=== PATIENT | male | born 1960 | race Caucasian/White ===

== ENCOUNTER 2016-11-24 11:37 | Inpatient (IN) | payer SELFPAY ==
[2016-11-24] VITALS (456 sets, daily range): BP systolic 113–126; BP diastolic 78–102; PULSE 76–153; TEMP 97.6–98.2; O2SAT 94–100
[~2016-11-24] VITALS: Ht 172.7 cm; Wt 87.4 kg
[~2016-11-24 11:37] MED LIST: ADVIL200 MG PO; ASPIRIN 32325 MG/TAB PO; ASPIRIN 81M81 MG/TA2 PO; CYCLOBENZAPRINE10 MG PO; FLEXERIL 1010 MG/TAB PO; LIPITOR20 MG PO; LOPRESSOR 225 MG/TAB PO; LORTAB 5/500 501 TAB PO; MULTAQ400 MG PO; NITROSTAT0.4 MG/TAB SL; NO HOME MEDICATIONS; NORCO 325 MG-51 TAB PO; NORCO 325 MG-7.1 TAB PO; PLAVIX 75MG TAB75 MG PO; PRADAXA 150MG150 MG PO; PRAVACHOL 40MG40 MG PO; SKELAXIN800 MG PO; ZESTRIL 10MG10 MG PO
[2016-11-24] MEDS ORDERED: NORCO 325 MG-7.1 TAB PO (11:49)
[2016-11-24] MEDS ORDERED: NEURONTIN300 MG/CAP PO (11:50)
[2016-11-24 12:14] LABS: INR 1.1 (0.8-3.0); PROTHROMBIN TIME 11.8 SECONDS (9.7-12.8)
[2016-11-24 12:15] LABS: ADJUSTED CALCIUM 9.5 mg/dL (8.4-10.2); ALBUMIN 4.6 gm/dL (3.5-5.0); BILIRUBIN,TOTAL 0.9 mg/dL (0.0-1.0); CREATININE, serum 0.9 mg/dL (0.66-1.25); POTASSIUM 4.1 mmol/L (3.4-5.0); TOTAL PROTEIN 7.9 gm/dL (6.4-8.2)
[2016-11-24 12:17] LABS: PARTIAL THROMBOPLASTIN TIME 21.2 SECONDS (26.0-37.0)
[2016-11-24 12:20] LABS: BASO % 0.4 % (0.0-2.0); EOS # 0.1 (0.0-0.7); EOS % 0.9 % (0-4.0); GRAN # 7.1 (1.4-6.5); HEMOGLOBIN 14.5 g/dl (13.5-18.0); LYMPH # 1.8 (1.2-3.4); LYMPH % 17.9 % (20.0-51.0); MEAN CELL VOLUME 96 fl (80.0-100.0); MEAN CORPUSCULAR HEMOGLOBIN 32 pg (27.0-31.0); MEAN CORPUSCULAR HGB CONC 34 g/dl (33.0-37.0); MONO # 0.8 (0.1-0.6); MONO % 8.6 % (1.7-9.3); PLATELET COUNT 218 K/mm3 (130-400); RED BLOOD COUNT 4.47 M/mm3 (4.20-5.60); WHITE BLOOD COUNT 9.8 K/mm3 (4.8-10.8)
[2016-11-24 12:29] LABS: B-TYPE NATRIURETIC PEPTIDE 155 pg/mL (0-125); TROPONIN-I < 0.012 ng/mL (0.000-0.034)
[2016-11-25] VITALS (469 sets, daily range): BP systolic 105–138; BP diastolic 68–105; PULSE 57–73; TEMP 98.2–99.2; O2SAT 94–100
[2016-11-25 05:29] LABS: BASO % 0.5 % (0.0-2.0); EOS # 0.2 (0.0-0.7); GRAN # 5.1 (1.4-6.5); GRAN % 64.1 % (42.2-75.2); HEMATOCRIT 37.9 % (42.0-52.0); HEMOGLOBIN 12.6 g/dl (13.5-18.0); LYMPH # 1.8 (1.2-3.4); MEAN CELL VOLUME 98 fl (80.0-100.0); MEAN CORPUSCULAR HEMOGLOBIN 33 pg (27.0-31.0); MEAN CORPUSCULAR HGB CONC 33 g/dl (33.0-37.0); MEAN PLATELET VOLUME 11.8 fl (7.4-10.4); MONO # 0.8 (0.1-0.6); PLATELET COUNT 166 K/mm3 (130-400); RED BLOOD COUNT 3.86 M/mm3 (4.20-5.60); REDCELL DISTRIBUTION WIDTH-CV 13.2 % (11.5-14.5); WHITE BLOOD COUNT 7.9 K/mm3 (4.8-10.8)
[2016-11-25 05:54] LABS: CALCIUM 9.4 mg/dL (8.4-10.2); CREATININE, serum 0.85 mg/dL (0.66-1.25); POTASSIUM 3.9 mmol/L (3.4-5.0)
[2016-11-25] MEDS ORDERED: XARELTO20 MG PO (07:57)
[2016-11-25] MEDS ORDERED: CORDARONE200 MG/TAB PO (07:57)
[2016-11-25] MEDS ORDERED: ZOCOR 10MG10 MG PO (08:06)
== END 2016-11-25 12:13 | disposition home or self-care (01) | DRG 310 ==
LOC: COL.ER 11:37 → ICU 13:18
PROVIDERS: Emergency Medicine; Internal Medicine
DX: I48.92 Unspecified atrial flutter (principal); G62.9 Polyneuropathy, unspecified; E78.5 Hyperlipidemia, unspecified; I25.10 Atherosclerotic heart disease of native coronary artery without angina pectoris; I25.2 Old myocardial infarction; Z79.82 Long term (current) use of aspirin; Z95.5 Presence of coronary angioplasty implant and graft
CPT/HCPCS: 99223-AI; 99239; J0282; J1650; J7030; J7050; J7060

== ENCOUNTER 2017-10-11 09:17 | Emergency (ER) | payer SELFPAY ==
[~2017-10-11] VITALS: Ht 170.2 cm; Wt 90.9 kg
[~2017-10-11 09:17] MED LIST changes: +CORDARONE200 MG/TAB PO; +NEURONTIN300 MG/CAP PO; +XARELTO20 MG PO; +ZOCOR 10MG10 MG PO
[2017-10-11 09:23] VITALS: BP 132/78; TEMP 98.1
[2017-10-11] MEDS ORDERED: CEPHALEXIN500 M1 PO (10:31)
[2017-10-11 10:39] VITALS: PULSE 70
== END 2017-10-11 10:42 | disposition home or self-care (01) ==
LOC: COL.ER 09:17
DX: S62.630B Displaced fracture of distal phalanx of right index finger, initial encounter for open fracture (principal); Z79.82 Long term (current) use of aspirin; Z23 Encounter for immunization; Z88.0 Allergy status to penicillin; W23.0XXA Caught, crushed, jammed, or pinched between moving objects, initial encounter

== ENCOUNTER 2017-10-25 17:35 | Emergency (ER) | payer SELFPAY ==
[~2017-10-25] VITALS: Ht 170.2 cm; Wt 93.2 kg
[~2017-10-25 17:35] MED LIST changes: +CEPHALEXIN500 M1 PO
[2017-10-25 17:39] VITALS: TEMP 99.5
[2017-10-25 18:20] LABS: BASO % 0.3 % (0.0-2.0); EOS # 0.1 (0.0-0.7); EOS % 0.6 % (0-4.0); GRAN # 8.6 (1.4-6.5); HEMATOCRIT 41.6 % (42.0-52.0); HEMOGLOBIN 13.9 g/dl (13.5-18.0); LYMPH # 1.6 (1.2-3.4); LYMPH % 14.4 % (20.0-51.0); MEAN CELL VOLUME 96 fl (80.0-100.0); MEAN CORPUSCULAR HEMOGLOBIN 32 pg (27.0-31.0); MEAN CORPUSCULAR HGB CONC 33 g/dl (33.0-37.0); MEAN PLATELET VOLUME 10.9 fl (7.4-10.4); MONO # 0.8 (0.1-0.6); MONO % 7.3 % (1.7-9.3); PLATELET COUNT 228 K/mm3 (130-400); RED BLOOD COUNT 4.35 M/mm3 (4.20-5.60); REDCELL DISTRIBUTION WIDTH-CV 13.5 % (11.5-14.5)
[2017-10-25 18:30] LABS: ALBUMIN 4.3 gm/dL (3.5-5.0); BILIRUBIN,TOTAL 0.6 mg/dL (0.0-1.0); CALCIUM 9.6 mg/dL (8.4-10.2); CREATININE, serum 1.08 mg/dL (0.66-1.25); MAGNESIUM 2.3 mg/dL (1.6-2.3); TOTAL PROTEIN 7.7 gm/dL (6.4-8.2)
[2017-10-25] MEDS ORDERED: ULTRAM 50MG TAB50 MG PO (18:49)
[2017-10-25] MEDS ORDERED: LOPRESSOR 225 MG/TAB PO (20:55)
[2017-10-25 22:05] VITALS: BP 102/77; PULSE 78
== END 2017-10-25 22:07 | disposition home or self-care (01) ==
LOC: COL.ER 17:35
PROVIDERS: Emergency Medicine
DX: I48.91 Unspecified atrial fibrillation (principal); I48.92 Unspecified atrial flutter
CPT/HCPCS: J1650; J2704

== ENCOUNTER 2017-11-09 20:34 | Inpatient (IN) | payer SELFPAY ==
[2017-11-09] VITALS (62 sets, daily range): BP systolic 105; BP diastolic 86; PULSE 135; TEMP 98.1; O2SAT 93–99
[~2017-11-09] VITALS: Ht 170.2 cm; Wt 96.8 kg
[~2017-11-09 20:34] MED LIST changes: +ULTRAM 50MG TAB50 MG PO
[2017-11-09 20:54] LABS: BASO % 0.3 % (0.0-2.0); EOS # 0.1 (0.0-0.7); EOS % 1.1 % (0-4.0); GRAN # 8.6 (1.4-6.5); GRAN % 71.7 % (42.2-75.2); HEMATOCRIT 41.2 % (42.0-52.0); LYMPH # 2.4 (1.2-3.4); LYMPH % 20.1 % (20.0-51.0); MEAN CELL VOLUME 94 fl (80.0-100.0); MEAN CORPUSCULAR HEMOGLOBIN 32 pg (27.0-31.0); MEAN CORPUSCULAR HGB CONC 34 g/dl (33.0-37.0); MEAN PLATELET VOLUME 11.4 fl (7.4-10.4); MONO # 0.8 (0.1-0.6); MONO % 6.5 % (1.7-9.3); PLATELET COUNT 212 K/mm3 (130-400); RED BLOOD COUNT 4.37 M/mm3 (4.20-5.60); REDCELL DISTRIBUTION WIDTH-CV 13.4 % (11.5-14.5)
[2017-11-09 21:01] LABS: INR 0.9 (0.8-3.0); PROTHROMBIN TIME 10.1 SECONDS (9.7-12.8)
[2017-11-09 21:03] LABS: ALANINE AMINOTRANSFERASE 42 U/L (21-72); ALKALINE PHOSPHATASE 89 U/L (50-136); ANION GAP 11 mmol/L (7-16); AST,SGOT 31 U/L (15-37); BILIRUBIN,TOTAL 0.3 mg/dL (0.0-1.0); BLOOD UREA NITROGEN 15 mg/dL (9-20); CALCIUM 9.1 mg/dL (8.4-10.2); CARBON DIOXIDE 22 mmol/L (22-30); CHLORIDE 104 mmol/L (98-107); GLUCOSE 190 mg/dL (74-106); POTASSIUM 3.8 mmol/L (3.4-5.0); SODIUM 137 mmol/L (137-145); TOTAL PROTEIN 7.3 gm/dL (6.4-8.2)
[2017-11-09 21:04] LABS: PARTIAL THROMBOPLASTIN TIME 37.2 SECONDS (26.0-37.0)
[2017-11-09 21:16] LABS: TROPONIN-I < 0.012 ng/mL (0.000-0.034)
[2017-11-09] MEDS ORDERED: ADVIL200 MG PO (22:14)
[2017-11-10] VITALS (867 sets, daily range): BP systolic 101–127; BP diastolic 67–98; PULSE 66–132; TEMP 97.5–98; O2SAT 88–100
[2017-11-10 05:47] LABS: BASO % 0.3 % (0.0-2.0); EOS # 0.3 (0.0-0.7); EOS % 3.3 % (0-4.0); GRAN # 5.1 (1.4-6.5); HEMOGLOBIN 14.4 g/dl (13.5-18.0); LYMPH # 2.5 (1.2-3.4); LYMPH % 28.2 % (20.0-51.0); MEAN CELL VOLUME 96 fl (80.0-100.0); MEAN CORPUSCULAR HEMOGLOBIN 32 pg (27.0-31.0); MEAN CORPUSCULAR HGB CONC 34 g/dl (33.0-37.0); MEAN PLATELET VOLUME 11.3 fl (7.4-10.4); MONO # 0.9 (0.1-0.6); MONO % 9.7 % (1.7-9.3); PLATELET COUNT 185 K/mm3 (130-400); RED BLOOD COUNT 4.46 M/mm3 (4.20-5.60); REDCELL DISTRIBUTION WIDTH-CV 13.5 % (11.5-14.5)
[2017-11-10 06:00] LABS: CALCIUM 8.8 mg/dL (8.4-10.2); CHOLESTEROL RISK RATIO 9.4; CREATININE, serum 0.71 mg/dL (0.66-1.25); POTASSIUM 3.9 mmol/L (3.4-5.0)
[2017-11-11] VITALS (519 sets, daily range): BP systolic 111–140; BP diastolic 72–98; PULSE 53–108; TEMP 98.2–98.8; O2SAT 89–100
[2017-11-11 05:56] LABS: INR 1.2 (0.8-3.0); PROTHROMBIN TIME 13.4 SECONDS (9.7-12.8)
[2017-11-11 07:34] LABS: BASO % 0.3 % (0.0-2.0); EOS # 0.2 (0.0-0.7); EOS % 1.6 % (0-4.0); GRAN % 72.2 % (42.2-75.2); HEMATOCRIT 43.6 % (42.0-52.0); HEMOGLOBIN 14.8 g/dl (13.5-18.0); LYMPH # 1.7 (1.2-3.4); LYMPH % 17.2 % (20.0-51.0); MEAN CELL VOLUME 95 fl (80.0-100.0); MEAN CORPUSCULAR HEMOGLOBIN 32 pg (27.0-31.0); MEAN CORPUSCULAR HGB CONC 34 g/dl (33.0-37.0); MEAN PLATELET VOLUME 10.8 fl (7.4-10.4); MONO # 0.8 (0.1-0.6); MONO % 8.1 % (1.7-9.3); PLATELET COUNT 200 K/mm3 (130-400); RED BLOOD COUNT 4.59 M/mm3 (4.20-5.60); REDCELL DISTRIBUTION WIDTH-CV 13.4 % (11.5-14.5)
[2017-11-11 07:48] LABS: CALCIUM 9.1 mg/dL (8.4-10.2); CREATININE, serum 0.74 mg/dL (0.66-1.25); MAGNESIUM 2.1 mg/dL (1.6-2.3); PHOSPHOROUS 2.4 mg/dL (2.5-4.5); POTASSIUM 4.1 mmol/L (3.4-5.0)
[2017-11-12 04:41] VITALS: BP 137/95; PULSE 63; TEMP 98.4
[2017-11-12 07:51] VITALS: BP 147/87; PULSE 67; TEMP 98.3
[2017-11-12] MEDS ORDERED: LOPRESSOR 550 MG/TAB PO (07:53)
[2017-11-12] MEDS ORDERED: LIPITOR 40MG TA40 MG PO (07:54)
[2017-11-12] MEDS ORDERED: EPA FISH OIL1 SGL PO (07:54)
[2017-11-12] MEDS ORDERED: ASPIRIN 81M81 MG/TA2 PO (07:54)
[2017-11-12] MEDS ORDERED: VITAMIN D31000 I1 PO (08:02)
== END 2017-11-12 10:25 | disposition home or self-care (01) | DRG 310 ==
LOC: COL.ER 20:34 → ICU 21:28 → SURG 11-11 13:45
PROVIDERS: Emergency Medicine; Hospitalist; Internal Medicine; Nurse Practitioner
DX: I48.91 Unspecified atrial fibrillation (principal); I48.92 Unspecified atrial flutter; I25.10 Atherosclerotic heart disease of native coronary artery without angina pectoris; Z95.5 Presence of coronary angioplasty implant and graft; Z91.14 Patient's other noncompliance with medication regimen; E78.5 Hyperlipidemia, unspecified; E55.9 Vitamin D deficiency, unspecified; R73.9 Hyperglycemia, unspecified
CPT/HCPCS: 99222-AI; 99232-AI; 99239; J1650; J7030

== ENCOUNTER 2017-12-16 21:02 | Emergency (ER) | payer SELFPAY ==
[~2017-12-16] VITALS: Ht 170.2 cm; Wt 93.2 kg
[~2017-12-16 21:02] MED LIST changes: +EPA FISH OIL1 SGL PO; +LIPITOR 40MG TA40 MG PO; +LOPRESSOR 550 MG/TAB PO; +VITAMIN D31000 I1 PO
[2017-12-16 21:06] VITALS: TEMP 97.9
[2017-12-16 21:27] LABS: BASO # 0.1 (0.0-0.2); BASO % 0.4 % (0.0-2.0); EOS # 0.3 (0.0-0.7); EOS % 2.6 % (0-4.0); GRAN # 8.3 (1.4-6.5); GRAN % 65.4 % (42.2-75.2); HEMATOCRIT 43.6 % (42.0-52.0); HEMOGLOBIN 14.8 g/dl (13.5-18.0); LYMPH # 2.8 (1.2-3.4); LYMPH % 22.1 % (20.0-51.0); MEAN CELL VOLUME 95 fl (80.0-100.0); MEAN CORPUSCULAR HEMOGLOBIN 32 pg (27.0-31.0); MEAN CORPUSCULAR HGB CONC 34 g/dl (33.0-37.0); MEAN PLATELET VOLUME 11.6 fl (7.4-10.4); MONO # 1.2 (0.1-0.6); MONO % 9.1 % (1.7-9.3); PLATELET COUNT 207 K/mm3 (130-400); RED BLOOD COUNT 4.57 M/mm3 (4.20-5.60); REDCELL DISTRIBUTION WIDTH-CV 13.3 % (11.5-14.5)
[2017-12-16 21:33] LABS: PROTHROMBIN TIME 11.2 SECONDS (9.7-12.8)
[2017-12-16 21:35] LABS: PARTIAL THROMBOPLASTIN TIME 32.3 SECONDS (26.0-37.0)
[2017-12-16 21:38] LABS: ALANINE AMINOTRANSFERASE 53 U/L (21-72); ALBUMIN 4.4 gm/dL (3.5-5.0); ALKALINE PHOSPHATASE 77 U/L (50-136); ANION GAP 8 mmol/L (7-16); AST,SGOT 29 U/L (15-37); BILIRUBIN,TOTAL 0.3 mg/dL (0.0-1.0); BLOOD UREA NITROGEN 16 mg/dL (9-20); CALCIUM 9.7 mg/dL (8.4-10.2); CARBON DIOXIDE 28 mmol/L (22-30); CHLORIDE 106 mmol/L (98-107); GLUCOSE 163 mg/dL (74-106); POTASSIUM 3.9 mmol/L (3.4-5.0); SODIUM 142 mmol/L (137-145); TOTAL PROTEIN 7.5 gm/dL (6.4-8.2)
[2017-12-16 21:52] LABS: TROPONIN-I < 0.012 ng/mL (0.000-0.034)
[2017-12-16] MEDS ORDERED: ELIQUIS 5MG PO (22:57)
[2017-12-16] MEDS ORDERED: LOPRESSOR 225 MG/TAB PO (22:57)
[2017-12-17 00:57] VITALS: BP 103/68; PULSE 56
== END 2017-12-17 01:00 | disposition home or self-care (01) ==
LOC: COL.ER 21:02
PROVIDERS: Family Medicine
DX: I48.92 Unspecified atrial flutter (principal); I48.91 Unspecified atrial fibrillation; Z79.82 Long term (current) use of aspirin
CPT/HCPCS: J1650

== ENCOUNTER 2018-03-09 20:36 | Inpatient (IN) | payer SELFPAY ==
[~2018-03-09] VITALS: Ht 170.2 cm; Wt 97.9 kg
[2018-03-09] VITALS (23 sets, daily range): O2SAT 96–99
[~2018-03-09 20:36] MED LIST changes: +ELIQUIS 5MG PO
[2018-03-09 21:12] LABS: BASO % 0.2 % (0.0-2.0); EOS # 0.2 (0.0-0.7); EOS % 1.5 % (0-4.0); GRAN % 68.9 % (42.2-75.2); HEMATOCRIT 43.7 % (42.0-52.0); LYMPH # 2.7 (1.2-3.4); LYMPH % 20.2 % (20.0-51.0); MEAN CELL VOLUME 94 fl (80.0-100.0); MEAN CORPUSCULAR HEMOGLOBIN 32 pg (27.0-31.0); MEAN CORPUSCULAR HGB CONC 34 g/dl (33.0-37.0); MEAN PLATELET VOLUME 11.2 fl (7.4-10.4); MONO # 1.1 (0.1-0.6); MONO % 8.7 % (1.7-9.3); PLATELET COUNT 213 K/mm3 (130-400); RED BLOOD COUNT 4.66 M/mm3 (4.20-5.60); REDCELL DISTRIBUTION WIDTH-CV 13.2 % (11.5-14.5)
[2018-03-09 21:19] LABS: INR 1.1 (0.8-3.0); PROTHROMBIN TIME 12.6 SECONDS (9.7-12.8)
[2018-03-09 21:21] LABS: PARTIAL THROMBOPLASTIN TIME 35.1 SECONDS (26.0-37.0)
[2018-03-09 21:36] LABS: ALANINE AMINOTRANSFERASE 41 U/L (21-72); ALBUMIN 4.4 gm/dL (3.5-5.0); ALKALINE PHOSPHATASE 84 U/L (50-136); ANION GAP 12 mmol/L (7-16); AST,SGOT 37 U/L (15-37); BILIRUBIN,TOTAL 0.5 mg/dL (0.0-1.0); BLOOD UREA NITROGEN 16 mg/dL (9-20); CARBON DIOXIDE 21 mmol/L (22-30); CHLORIDE 105 mmol/L (98-107); CREATININE, serum 0.82 mg/dL (0.66-1.25); GLUCOSE 111 mg/dL (74-106); MAGNESIUM 2.1 mg/dL (1.6-2.3); POTASSIUM 4.5 mmol/L (3.4-5.0); SODIUM 138 mmol/L (137-145); TOTAL PROTEIN 7.5 gm/dL (6.4-8.2)
[2018-03-09 21:48] LABS: TROPONIN-I < 0.012 ng/mL (0.000-0.035)
--- NOTE | 2018-03-09 23:20 | NUR ---
Pt report received from Yessenia RUST in ED.
--- NOTE | 2018-03-09 23:30 | NUR ---
Pt arrived via stretcher. Spouse in the waiting room at this time. Pt txd with stand by assist from stretcher to ICU04 bed. Gait was steady. Pants and shoes were removed once pt reached the bed. Denies any pain or SOA at this time. IV pumps switched with ED. Pt hooked up to monitors at this time.
[2018-03-10] VITALS (569 sets, daily range): BP systolic 98–130; BP diastolic 75–99; PULSE 60–136; TEMP 97–97.6; O2SAT 89–100
[2018-03-10] MEDS ORDERED: ADVIL200 MG PO (02:35)
[2018-03-10 04:54] LABS: BASO % 0.4 % (0.0-2.0); EOS # 0.2 (0.0-0.7); EOS % 2.2 % (0-4.0); GRAN # 6.7 (1.4-6.5); GRAN % 61.9 % (42.2-75.2); HEMATOCRIT 43.9 % (42.0-52.0); HEMOGLOBIN 14.9 g/dl (13.5-18.0); LYMPH # 2.8 (1.2-3.4); LYMPH % 25.3 % (20.0-51.0); MEAN CELL VOLUME 95 fl (80.0-100.0); MEAN CORPUSCULAR HEMOGLOBIN 32 pg (27.0-31.0); MEAN CORPUSCULAR HGB CONC 34 g/dl (33.0-37.0); MONO # 1.1 (0.1-0.6); MONO % 9.8 % (1.7-9.3); PLATELET COUNT 226 K/mm3 (130-400); RED BLOOD COUNT 4.63 M/mm3 (4.20-5.60); REDCELL DISTRIBUTION WIDTH-CV 13.2 % (11.5-14.5)
[2018-03-10 05:04] LABS: CALCIUM 9.4 mg/dL (8.4-10.2); CHOLESTEROL RISK RATIO 10.8; CREATININE, serum 0.83 mg/dL (0.66-1.25); POTASSIUM 3.9 mmol/L (3.4-5.0)
--- NOTE | 2018-03-10 07:00 | NUR ---
REPORT RECEIVED FROM YOCASTA CARLSON.
--- NOTE | 2018-03-10 07:15 | NUR ---
Bedside report provided to Sarah RUST. Pt alert during report.
--- NOTE | 2018-03-10 10:12 | NUR ---
Initial visit; Patient thanked Cooker Cleaner for looking in on him and offering God's blessings.
[2018-03-10] MEDS ORDERED: LOPRESSOR 550 MG/TAB PO (12:18)
[2018-03-10] MEDS ORDERED: LIPITOR 40MG TA40 MG PO (12:18)
--- NOTE | 2018-03-10 13:15 | NUR ---
SW met with patient after clinical rounds. Patient lives independently at home with his and works at [employer]. He does not use any medical equipment or home health services. Andrea ocampors he does not have any issues filling prescriptions. He also does not have a PCP but will be set up with one upon discharge. Patient is planning on discharging today and there are no discharge needs.
--- NOTE | 2018-03-10 15:30 | NUR ---
PATIENT DISCHARGE PACKET, NEW MEDS, APPTS REVIEWED. PATIENT ASSISTED OUT TO EMERGENCY ROOM ENTRANCE WHERE HIS BROTHER PICKS HIM UP.
== END 2018-03-10 15:30 | disposition home or self-care (01) | DRG 310 ==
LOC: COL.ER 20:36 → ICU 22:43
PROVIDERS: Emergency Medicine; Nurse Practitioner; ADMIT Family Medicine
DX: I48.0 Paroxysmal atrial fibrillation (principal); I48.92 Unspecified atrial flutter; I25.10 Atherosclerotic heart disease of native coronary artery without angina pectoris; E78.5 Hyperlipidemia, unspecified; Z95.5 Presence of coronary angioplasty implant and graft; Z91.14 Patient's other noncompliance with medication regimen; E55.9 Vitamin D deficiency, unspecified
CPT/HCPCS: 99223-AI; J7030

== ENCOUNTER → 2019-10-20 | Outpatient (CLI) | payer SELFPAY ==
[~2019-10-20] MED LIST changes: +CARDIZEM 30MG T30 MG PO; +CARDIZEM CD 18180 MG PO; +GLUCOPHAGE500 MG/TAB PO
== END ==
LOC: COL.VAS 14:31
DX: I25.10 Atherosclerotic heart disease of native coronary artery without angina pectoris (principal)

== ENCOUNTER 2019-11-29 02:08 | Emergency (ER) | payer SELFPAY ==
[~2019-11-29] VITALS: Ht 170.2 cm; Wt 95.5 kg
[2019-11-29 02:54] LABS: BASO # 0.1 (0.0-0.2); BASO % 0.4 % (0.0-2.0); EOS # 0.3 (0.0-0.7); EOS % 1.9 % (0-4.0); GRAN # 10.5 (1.4-6.5); GRAN % 74.3 % (42.2-75.2); HEMATOCRIT 42.2 % (42.0-52.0); HEMOGLOBIN 14.4 g/dl (13.5-18.0); LYMPH # 2.1 (1.2-3.4); LYMPH % 15.1 % (20.0-51.0); MEAN CELL VOLUME 95 fl (80.0-100.0); MEAN CORPUSCULAR HEMOGLOBIN 32 pg (27.0-31.0); MEAN CORPUSCULAR HGB CONC 34 g/dl (33.0-37.0); MEAN PLATELET VOLUME 10.8 fl (7.4-10.4); MONO # 1.1 (0.1-0.6); MONO % 7.9 % (1.7-9.3); PLATELET COUNT 223 K/mm3 (130-400); RED BLOOD COUNT 4.45 M/mm3 (4.20-5.60); REDCELL DISTRIBUTION WIDTH-CV 13.4 % (11.5-14.5)
[2019-11-29 03:01] LABS: INR 1.3 (0.8-3.0); PROTHROMBIN TIME 14.3 SECONDS (9.7-12.8)
[2019-11-29 03:03] LABS: ALANINE AMINOTRANSFERASE 26 U/L (4-49); ALBUMIN 4.5 gm/dL (3.5-5.0); ALKALINE PHOSPHATASE 101 U/L (50-136); ANION GAP 8 mmol/L (7-16); AST,SGOT 28 U/L (15-37); BILIRUBIN,TOTAL 0.7 mg/dL (0.0-1.0); BLOOD UREA NITROGEN 14 mg/dL (9-20); CALCIUM 9.6 mg/dL (8.4-10.2); CARBON DIOXIDE 25 mmol/L (22-30); CHLORIDE 103 mmol/L (98-107); CREATININE, serum 0.96 (0.66-1.25); GLUCOSE 194 mg/dL (74-106); LIPASE 71 U/L (23-300); POTASSIUM 3.8 mmol/L (3.4-5.0); SODIUM 136 mmol/L (137-145); TOTAL PROTEIN 7.8 gm/dL (6.4-8.2)
[2019-11-29 03:05] LABS: ALCOHOL(ethanol),MEDICAL < 10 mg/dL
[2019-11-29 03:14] LABS: TROPONIN-I 0.029 ng/mL (0.000-0.035)
[2019-11-29 06:45] VITALS: BP 140/77; PULSE 75
== END 2019-11-29 06:50 | disposition short-term general hospital (02) ==
LOC: COL.ER 02:08
PROVIDERS: Emergency Medicine
DX: I20.0 Unstable angina (principal); I10 Essential (primary) hypertension; Z95.5 Presence of coronary angioplasty implant and graft; Z86.79 Personal history of other diseases of the circulatory system; Z88.0 Allergy status to penicillin; Z79.01 Long term (current) use of anticoagulants; Z79.82 Long term (current) use of aspirin; Z79.84 Long term (current) use of oral hypoglycemic drugs
CPT/HCPCS: J7030

== ENCOUNTER 2021-10-26 00:07 | Observation (INO) | payer SELFPAY ==
[~2021-10-26] VITALS: Ht 172.7 cm; Wt 94.3 kg
[2021-10-26 00:42] LABS: BASO % 0.4 % (0.0-2.0); EOS # 0.2 K/mm3 (0.0-0.7); EOS % 2.4 % (0.0-4.0); GRAN # 6.5 K/mm3 (1.4-6.5); GRAN % 65.1 % (42.2-75.2); HEMATOCRIT 44.8 % (42.0-52.0); HEMOGLOBIN 15.7 g/dl (13.5-18.0); LYMPH # 2.2 K/mm3 (1.2-3.4); LYMPH % 22.5 % (20.0-51.0); MEAN CELL VOLUME 94 fl (80.0-100.0); MEAN CORPUSCULAR HEMOGLOBIN 33 pg (27-31); MEAN CORPUSCULAR HGB CONC 35 g/dl (33.0-37.0); MEAN PLATELET VOLUME 11.2 fl (7.4-10.4); MONO # 0.9 K/mm3 (0.1-0.6); MONO % 9.3 % (1.7-9.3); PLATELET COUNT 232 K/mm3 (130-400); RED BLOOD COUNT 4.75 M/mm3 (4.20-5.60); REDCELL DISTRIBUTION WIDTH-CV 13.3 % (11.5-14.5)
[2021-10-26 03:06] LABS: ALBUMIN 3.8 gm/dL (3.5-5.0); BILIRUBIN,TOTAL 0.5 mg/dL (0.2-1.2); CALCIUM 9.8 mg/dL (8.4-10.2); CREATININE, serum 1.08 mg/dL (0.72-1.25); POTASSIUM 3.8 mmol/L (3.5-4.5); TOTAL PROTEIN 7.1 gm/dL (6.2-8.1)
[2021-10-26 03:07] LABS: TROPONIN-I 0.011 ng/mL (0.00-0.033)
[2021-10-26 03:14] LABS: PARTIAL THROMBOPLASTIN TIME 31.6 SECONDS (26.0-37.0); PROTHROMBIN TIME 11.6 SECONDS (9.7-12.8)
[2021-10-26 04:01] LABS: MAGNESIUM 2.3 mg/dL (1.6-2.6)
[2021-10-26 04:21] LABS: TSH w REFLEX 2.877 uIU/mL (0.350-4.940)
[2021-10-26 04:29] VITALS: BP 108/65; PULSE 72
[2021-10-26] MEDS ORDERED: COREG 3.123.125 MG/T PO (04:38)
[2021-10-26] MEDS ORDERED: PRINIVIL2.5 MG PO (04:39)
[2021-10-26] MEDS ORDERED: LIPITOR 10MG10 MG PO (04:39)
[2021-10-26] MEDS ORDERED: PLAVIX 75MG TAB75 MG PO (04:40)
[2021-10-26] MEDS ORDERED: PLAVIX 75MG TAB75 MG (04:40)
--- NOTE | 2021-10-26 04:41 | NUR ---
PT BROUGHT TO ROOM 323 VIA BED FROM ED. PT A&OX4 AND AMBULATED TO BED. VS STABLE AND TELE IN PLACE. PT REPORTS FEELING A LOT BETTER. HEPARIN INFUSING AT 16.5 AND DILTIAZEM INFUSING AT 2.5 IN RT AC. MED REC AND ADMISSION ASSESS COMPLETE. NO NEEDS AT THIS TIME. CALL LIGHT WITHIN REACH.
--- NOTE | 2021-10-26 05:41 | NUR ---
PTS BP 83/43, CALLED AMELIA AND GOT VERBAL ORDER FOR NS AT 175ML/HR.
[2021-10-26 07:32] VITALS: BP 98/63; PULSE 61; TEMP 97.9
--- NOTE | 2021-10-26 09:00 | NUR ---
Initial visit; Patient thanked Javascript Application Developer for looking in on him and offering encouragement and God's blessings.
[2021-10-26] MEDS ORDERED: ELIQUIS 5MG PO (09:34)
[2021-10-26] MEDS ORDERED: CORDARONE200 MG/TAB PO (09:36)
--- NOTE | 2021-10-26 10:05 | NUR ---
PATIENT ALERT AND ORIENTED X4. BLOOD PRESSURES SOFT. PATIENT DENIES ANY SYMPTOMS RELATED TO HYPOTENSION. PATIENT ON HEP GTT RUNNING AT 16.5. CARDIZEM GTT RUNNING AT 2.5. PATIENT DENIES PAIN. ASSESSMENT PERFOMED. AM MEDS ADMINISTERED. PATIENT RESTING IN BED WITH CALL LIGHT NEAR.
--- NOTE | 2021-10-26 10:43 | NUR ---
DISCHARGE INSTRUCTIONS PROVIDED. PATIENT EDUCATION GIVEN. FOLLOW UP APPOINTMENTS AND NEW MEDICATIONS DISCUSSED. PATIENT DENIES ANY QUESTIONS OR CONCERNS. IV DC'D. PATIENT ESCORTED OUT VIA WHEELCHAIR.
== END 2021-10-26 10:38 | disposition home or self-care (01) ==
LOC: COL.ER 00:07 → SURG 03:01
PROVIDERS: Nurse Practitioner; Student in an Organized Health Care Education/Training Program; ADMIT Student in an Organized Health Care Education/Training Program
DX: I48.92 Unspecified atrial flutter (principal); E11.9 Type 2 diabetes mellitus without complications; E78.5 Hyperlipidemia, unspecified; I10 Essential (primary) hypertension; I25.10 Atherosclerotic heart disease of native coronary artery without angina pectoris; I48.0 Paroxysmal atrial fibrillation; I25.2 Old myocardial infarction; Z79.82 Long term (current) use of aspirin; Z95.5 Presence of coronary angioplasty implant and graft; Z79.84 Long term (current) use of oral hypoglycemic drugs; Z79.02 Long term (current) use of antithrombotics/antiplatelets; Z79.899 Other long term (current) drug therapy
CPT/HCPCS: G0378; J1644; J1815; J7030

== ENCOUNTER 2023-04-18 08:40 | Observation (INO) | payer OTHER ==
[~2023-04-18] VITALS: Ht 170.2 cm; Wt 88.6 kg
[2023-04-18] VITALS (7 sets, daily range): BP systolic 143–185; BP diastolic 50–108; PULSE 65–75; TEMP 97.9–98.4
[~2023-04-18 08:40] MED LIST changes: +COREG 3.123.125 MG/T PO; +LIPITOR 10MG10 MG PO; +PLAVIX 75MG TAB75 MG; +PRINIVIL2.5 MG PO
[2023-04-18 09:15] LABS: BASO % 0.2 % (0.0-2.0); EOS # 0.1 K/mm3 (0.0-0.7); EOS % 1.5 % (0.0-4.0); GRAN # 5.6 K/mm3 (1.4-6.5); GRAN % 67.9 % (42.2-75.2); HEMATOCRIT 47.5 % (42.0-52.0); HEMOGLOBIN 15.9 g/dl (13.5-18.0); LYMPH # 1.7 K/mm3 (1.2-3.4); LYMPH % 20.1 % (20.0-51.0); MEAN CELL VOLUME 97 fl (80.0-100.0); MEAN CORPUSCULAR HEMOGLOBIN 33 pg (27-31); MEAN CORPUSCULAR HGB CONC 34 g/dl (33.0-37.0); MEAN PLATELET VOLUME 10.9 fl (7.4-10.4); MONO # 0.8 K/mm3 (0.1-0.6); MONO % 10.1 % (1.7-9.3); PLATELET COUNT 246 K/mm3 (130-400); RED BLOOD COUNT 4.89 M/mm3 (4.20-5.60); REDCELL DISTRIBUTION WIDTH-CV 12.8 % (11.5-14.5)
[2023-04-18 09:22] LABS: PROTHROMBIN TIME 11.2 SECONDS (9.7-12.8)
[2023-04-18 09:31] LABS: ALANINE AMINOTRANSFERASE 22 U/L (0-55); ALBUMIN 4.2 gm/dL (3.4-4.8); ALKALINE PHOSPHATASE 90 U/L (40-150); ANION GAP 11 mmol/L (7-16); AST,SGOT 17 U/L (5-34); BILIRUBIN,TOTAL 0.5 mg/dL (0.2-1.2); BLOOD UREA NITROGEN 17 mg/dL (8-26); CALCIUM 10.1 mg/dL (8.4-10.2); CHLORIDE 106 mmol/L (98-107); CREATININE, serum 1.06 mg/dL (0.72-1.25); GLUCOSE 236 mg/dL (70-99); POTASSIUM 3.9 mmol/L (3.5-4.5); SODIUM 140 mmol/L (136-145); TOTAL PROTEIN 7.8 gm/dL (6.2-8.1)
[2023-04-18 09:49] LABS: TROPONIN-I < 0.010 ng/mL (0.00-0.033)
[2023-04-18 10:04] LABS: COLLECTION METHOD CLEAN CATCH
[2023-04-18 10:23] LABS: URINE APPEARANCE CLEAR (CLEAR/HAZY); URINE BLOOD NEGATIVE (NEGATIVE); URINE COLOR YELLOW (YELLOW); URINE GLUCOSE 3+ (NEGATIVE); URINE KETONE 1+ (NEGATIVE); URINE NITRATE NEGATIVE (NEGATIVE); URINE PROTEIN(semi-quant) 1+ (NEGATIVE); URINE UROBILINOGEN 0.2 E.U/dL (0.2-1.0)
[2023-04-18 10:30] LABS: TRICYCLIC ANTIDEPRESS URINE NEGATIVE (NEGATIVE)
[2023-04-18] MEDS ORDERED: hydrALAZINE 20 MG/ML 1 ML VIAL IV ONE (11:15)
[2023-04-18 13:03] LABS: MAGNESIUM 2.2 mg/dL (1.6-2.6); PHOSPHOROUS 2.3 mg/dL (2.3-4.7)
--- NOTE | 2023-04-18 13:45 | NUR ---
FABIO ARRIVED TO MEDICAL UNIT FROM ER IN STABLE CONDITION. VSS. PATIENT PASSED RN BEDSIDE SWALLOW EVAL WITH NO ISSUES OR SIGNS/SYMPTOMS OF ASPIRATION.
[2023-04-18] MEDS ORDERED: Insulin Lispro (HumaLOG) SQ SCH (14:11)
[2023-04-18] MEDS ORDERED: Folic Acid 1 MG TAB PO SCH (14:47)
[2023-04-18] MEDS ORDERED: Dextrose 50% Water 25 GM/50 ML SYRINGE IV PRN (15:00)
[2023-04-18] MEDS ORDERED: Mag/Al Hydrox/Simeth Susp 30 ML CUP PO PRN (15:00)
[2023-04-18] MEDS ORDERED: diazePAM 5 MG TAB PO PRN (15:00)
[2023-04-18] MEDS ORDERED: Glucagon 1 MG VIAL IM PRN (15:00)
[2023-04-18] MEDS ORDERED: Dextrose (Glucose) 15 GM (4 x 3.75 GM) Chewable TABLET PACK PO PRN (15:00)
--- NOTE | 2023-04-18 15:00 | NUR ---
FABIO JUST ATE A LATE LUNCH AND DOES NOT WANT RN TO CHECK HIS SUGAR AT THIS TIME, WILL RECHECK BLOOD SUGAR AT A LATER TIME.
[2023-04-18] MEDS ORDERED: GLUCOPHAGE500 MG/TAB PO (16:21)
[2023-04-18] MEDS ORDERED: Multivitamin TAB PO SCH (17:00)
[2023-04-18] MEDS ORDERED: hydrALAZINE 20 MG/ML 1 ML VIAL IV PRN (18:30)
--- NOTE | 2023-04-18 18:30 | NUR ---
[place] HEAD OF CONSERVATION NOTIFIED FABIO BP 164/108, FABIO DENIES ANY COMPLAINTS. PER HEAD OF CONSERVATION PATIENT PERMISSIVE HTN 150-170. ADDITIONAL NURSING ORDER CREATED VORB.
--- NOTE | 2023-04-18 19:20 | NUR ---
BEDSIDE SHIFT REPORT COMPLETE. PATIENT RESTING IN BED, CALL LIGHT WITHIN REACH, AT BEDSIDE. PATIENT DENIES ANY NEEDS OR COMPLAINTS AT THIS TIME.
--- NOTE | 2023-04-18 21:00 | NUR ---
Initial shift assessment done, has been sleeping, no requests, states he feels fine, VSS, no neuro deficits- equal hand grasps, speech clear . Denies pain. B/P 159/94. 98% RA- pt states hes ready to go back to sleep! steady on feet- no weakness. Tele on SR
[2023-04-19] VITALS (8 sets, daily range): BP systolic 143–195; BP diastolic 91–113; PULSE 64–81; TEMP 97.8–98.3
--- NOTE | 2023-04-19 05:54 | NUR ---
Quiet night- B/P stayed under 170Systolic all night,, CIWA score 0 all night,, pt states he only drinks 2 beers/3 times a week--neuros imtact, no deficits.
[2023-04-19 06:27] LABS: BASO % 0.4 % (0.0-2.0); EOS # 0.1 K/mm3 (0.0-0.7); EOS % 1.1 % (0.0-4.0); GRAN # 5.1 K/mm3 (1.4-6.5); GRAN % 69.1 % (42.2-75.2); HEMOGLOBIN 15.2 g/dl (13.5-18.0); LYMPH # 1.4 K/mm3 (1.2-3.4); LYMPH % 19.2 % (20.0-51.0); MEAN CELL VOLUME 97 fl (80.0-100.0); MEAN CORPUSCULAR HEMOGLOBIN 33 pg (27-31); MEAN CORPUSCULAR HGB CONC 34 g/dl (33.0-37.0); MEAN PLATELET VOLUME 10.8 fl (7.4-10.4); MONO # 0.7 K/mm3 (0.1-0.6); MONO % 9.9 % (1.7-9.3); PLATELET COUNT 202 K/mm3 (130-400); RED BLOOD COUNT 4.65 M/mm3 (4.20-5.60); REDCELL DISTRIBUTION WIDTH-CV 12.9 % (11.5-14.5)
[2023-04-19 06:45] LABS: CALCIUM 9.9 mg/dL (8.4-10.2); CHOLESTEROL RISK RATIO 11.5; CREATININE, serum 0.98 mg/dL (0.72-1.25); POTASSIUM 4.3 mmol/L (3.5-4.5)
--- NOTE | 2023-04-19 07:55 | NUR ---
PATIENT AWAKE AND ALERT, RESTING IN BED. PATIENT DENIES ANY NEEDS OR COMPLAINTS AT THIS TIME, CALL LIGHT WITHIN REACH.
[2023-04-19] MEDS ORDERED: LIPITOR 80MG80 MG PO (08:18)
[2023-04-19] MEDS ORDERED: ASPIRIN 81M81 MG/TA2 PO (08:18)
[2023-04-19] MEDS ORDERED: PLAVIX 75MG TAB75 MG PO (08:18)
[2023-04-19] MEDS ORDERED: GLUCOPHAGE500 MG/TAB PO (08:21)
[2023-04-19] MEDS ORDERED: PRINIVIL5 MG PO (08:22)
--- NOTE | 2023-04-19 08:23 | NUR ---
Patient is upright in recliner A&Ox4, answers all questions appropriately. VSS and BP noted to be 166/113, no repors of ENGEL. No deficits noted, patient loan collector strength is equal. Patient is left with call light in reach, eating breakfast and watching television. Expects to be discharged today, this student nurse will report HTN to primary nurse. Patient also reports stopping his metformin over a year ago and stopping his lisinopril. Patient expresses understanding of risks and the management of chronicly elevated BGL and BP, states that he needs to get better about taking his medications.
--- NOTE | 2023-04-19 09:50 | NUR ---
PATIENT IV AND TELE DISCONTINUED. THIS RN DISCUSSED DISCHARGE INSTRUCTIONS AND EDUCAITON WITH PATIENT. PATIENT AWAITING HIS FOR DC.
--- NOTE | 2023-04-19 10:18 | NUR ---
NOTIIFED PATIENT BP CURRENTLY 195/110. ORDER FOR HYDRALAZINE 25MG PO. THEN RECHECK BP BEFORE DISCHARGE.
[2023-04-19] MEDS ORDERED: hydrALAZINE 25 MG TAB PO ONE (10:30)
[2023-04-19] MEDS ORDERED: cloNIDine 0.1 MG TAB PO ONE (11:00)
--- NOTE | 2023-04-19 11:22 | NUR ---
FABIO TAKEN TO ER ENTRANCE VIA WHEELCHAIR BY RN STUDENT WHERE HE LEFT IN STABLE CONDITIN WITH HIS . FABIO VERBALIZED UNDERSTANDING TO START HIS LISINIPRIL TOMORROW AM
--- NOTE | 2023-04-19 13:23 | NUR ---
overhead worker informed Cash Applications Representative, Aimee of pt being self pay status. She will meet with pt.
[2023-04-19] MEDS ORDERED: Atorvastatin 10 MG TAB PO SCH (21:00)
== END 2023-04-19 11:25 | disposition home or self-care (01) ==
LOC: COL.ER 08:40 → MEDICAL 12:43 → COL.ER 12:43 → MEDICAL 16:27
PROVIDERS: Emergency Medicine; Nurse Practitioner Family; ADMIT Internal Medicine
DX: I63.89 Other cerebral infarction (principal); R29.700 NIHSS score 0; G81.94 Hemiplegia, unspecified affecting left nondominant side; I16.0 Hypertensive urgency; I25.10 Atherosclerotic heart disease of native coronary artery without angina pectoris; I10 Essential (primary) hypertension; E11.9 Type 2 diabetes mellitus without complications; F10.90 Alcohol use, unspecified, uncomplicated; F12.90 Cannabis use, unspecified, uncomplicated; I48.0 Paroxysmal atrial fibrillation; Z91.141 Patient's other noncompliance with medication regimen due to financial hardship; T45.516A Underdosing of anticoagulants, initial encounter; Z87.820 Personal history of traumatic brain injury; Z95.5 Presence of coronary angioplasty implant and graft
CPT/HCPCS: G0378; J0360; J1650; J1815; J1920